=== PATIENT | male | born 1995 | race American Indian/Alaskan Native ===

== ENCOUNTER 2019-12-27 17:10 | Emergency (ER) | payer OTHER ==
[2019-12-27 17:30] VITALS: BP 134/73
--- NOTE | 2019-12-27 17:50 | Emergency Department Report ---
Blank Doc - Documentation Documentation: 24-year-old male that presents with right lower abdominal pain with radiation to right lower back area. exam: RLQ tenderness with rebound as well. This initial assessment/diagnostic orders/clinical plan/treatment(s) is/are subject to change based on patient's health status, clinical progression and re- assessment by fellow clinical providers in the ED. Further treatment and workup at subsequent clinical providers discretion. Patient/guardians urged not to elope from the ED as their condition may be serious if not clinically assessed and managed. Initial orders include: 1- Patient sent to [facility] for further evaluation and treatment 2- labs 3- UA
[2019-12-27 18:40] LABS: Basophils % (Auto) 0.4 % (0.0-1.8); Eosinophils # (Auto) 0.1 K/mm3 (0.0-0.4); Eosinophils % (Auto) 1.6 % (0.0-4.3); Hematocrit 44.3 % (35.5-45.6); Hemoglobin 15.5 gm/dl (11.8-15.2); Lymphocytes # (Auto) 1.9 K/mm3 (1.2-5.4); Lymphocytes % (Auto) 23.5 % (13.4-35.0); Mean Corpuscular HGB Conc 35 % (32-34); Mean Corpuscular Volume 88 fl (84-94); Monocytes # (Auto) 0.8 K/mm3 (0.0-0.8); Monocytes % (Auto) 9.7 % (0.0-7.3); Platelet Count 195 K/mm3 (140-440); Red Blood Count 5.04 M/mm3 (3.65-5.03); Red Cell Distribution Width 13.7 % (13.2-15.2)
[2019-12-27 19:00] LABS: Bacteria,Urine 1+ /HPF (Negative); Bilirubin,Urine NEG (Negative); Blood,Urine NEG (Negative); Color,Urine Yellow (Yellow); Mucus,Urine 3+ /HPF; WBC,Urine < 1.0 /HPF (0.0-6.0)
[2019-12-27 19:01] LABS: Alanine Aminotransferase 24 units/L (7-56); Albumin 4.5 g/dL (3.9-5); BUN/Creatinine Ratio 18; Blood Urea Nitrogen 18 mg/dL (9-20); Calcium 9.5 mg/dL (8.4-10.2); Hemolysis Index 9
[2019-12-27] MEDS ORDERED: IBUPROFEN 600 MG TAB PO ONE (20:05)
[2019-12-27] MEDS ORDERED: ACETAMINOPHEN 500 MG TAB PO ONE (20:05)
[2019-12-27] MEDS ORDERED: predniSONE 20 MG TAB PO ONE (20:06)
--- NOTE | 2019-12-27 20:33 | Emergency Department Report ---
ED Back Pain/Injury HPI - General Chief Complaint: Back Pain/Injury Stated Complaint: SIDE/BACK PAIN Time Seen by Provider: 12/27/19 17:48 Source: patient Limitations: No Limitations - History of Present Illness Initial Comments: Patient is a 24-year-old -[place] male with no past medical history except chronic low back pain who presents to the ED with complaint of acute exacerbation of his chronic low back pain that radiates to the right leg for the last 1 week. 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 Patient denies dysuria, hematuria, fall, traumatic injury, numbness and tingling or weakness of lower extremities bilaterally, abdominal pain, nausea, vomiting, fever, chills, cough, chest pain or shortness of breath, neck pain or headache, dizziness or syncope and seizures. MD Complaint: back pain, other (Right lower leg pain) -: Sudden, week(s) (1) Similar Symptoms Previously: Yes Place: work Radiation: right leg Severity: severe Severity scale (0 -10): 7 Quality: sharp, aching Consistency: constant Improves With: none Worsens With: movement, sitting upright, walking Context: while lifting, turning/twisting Associated Symptoms: denies other symptoms. denies: confusion, weakness, chest pain, difficulty walking, cough, difficulty urinating, diaphoresis, incon tinence, fever/chills, constipation, headaches, abdominal pain, nausea/vomiting, rash, seizure, shortness of breath, syncope, other - Related Data Previous Rx's Medication Instructions Recorded Last Taken Type Ibuprofen [Motrin 800 MG tab] 800 mg PO Q8HR PRN #30 tablet 09/13/15 Unknown Rx Naproxen 500 mg PO Q12H PRN #30 tablet 12/27/19 Unknown Rx methOCARBAMOL [Robaxin TAB] 500 mg PO BID PRN #30 tab 12/27/19 Unknown Rx predniSONE [Deltasone] 40 mg PO QDAY #12 tab 12/27/19 Unknown Rx traMADoL [Ultram] 50 mg PO Q6HR PRN #12 tablet 12/27/19 Unknown Rx Allergies Allergy/AdvReac Type Severity Reaction Status Date / Time No Known Allergies Allergy Unverified 09/13/15 11:53 ED Review of Systems ROS: Stated complaint: SIDE/BACK PAIN Other details as noted in HPI Constitutional: denies: chills, fever Eyes: denies: eye pain, eye discharge, vision change ENT: denies: ear pain, throat pain Respiratory: denies: cough, shortness of breath, wheezing Cardiovascular: denies: chest pain, palpitations Endocrine: no symptoms reported Gastrointestinal: denies: abdominal pain, nausea, diarrhea Genitourinary: denies: urgency, dysuria Musculoskeletal: back pain (lower back pain), arthralgia (right leg). denies: joint swelling Skin: denies: rash, lesions Neurological: denies: headache, weakness, paresthesias Psychiatric: denies: anxiety, depression Hematological/Lymphatic: denies: easy bleeding, easy bruising ED Past Medical Hx - Past Medical History Previous Medical History?: No - Surgical History Past Surgical History?: Yes Additional Surgical History: bilateral 5th digit Fx and repair - Social History Smoking Status: Never Smoker Substance Use Type: None - Medications Home Medications: Home Medications Medication Instructions Recorded Confirmed Last Taken Type Ibuprofen [Motrin 800 MG tab] 800 mg PO Q8HR PRN #30 tablet 09/13/15 Unknown Rx Naproxen 500 mg PO Q12H PRN #30 tablet 12/27/19 Unknown Rx methOCARBAMOL [Robaxin TAB] 500 mg PO BID PRN #30 tab 12/27/19 Unknown Rx predniSONE [Deltasone] 40 mg PO QDAY #12 tab 12/27/19 Unknown Rx traMADoL [Ultram] 50 mg PO Q6HR PRN #12 tablet 12/27/19 Unknown Rx ED Physical Exam - General Limitations: No Limitations General appearance: alert, in no apparent distress - Head Head exam: Present: atraumatic, normocephalic, normal inspection - Eye Eye exam: Present: normal appearance, PERRL, EOMI Pupils: Present: normal accommodation - ENT ENT exam: Present: normal exam, normal orophraynx, mucous membranes moist, TM's normal bilaterally, normal external ear exam - Neck Neck exam: Present: normal inspection, full ROM - Respiratory Respiratory exam: Present: normal lung sounds bilaterally. Absent: respiratory distress, wheezes, rales, stridor, chest wall tenderness, accessory muscle use, decreased breath sounds, prolonged expiratory - Cardiovascular Cardiovascular Exam: Present: regular rate, normal rhythm, normal heart sounds. Absent: systolic murmur, diastolic murmur, rubs, gallop - GI/Abdominal GI/Abdominal exam: Present: soft, normal bowel sounds. Absent: tenderness, guarding, rebound, hyperactive bowel sounds, hypoactive bowel sounds, organomegaly - Extremities Exam Extremities exam: Present: normal inspection, full ROM, normal capillary refill - Back Exam Back exam: Present: normal inspection, full ROM, tenderness (Palpable lumbosa cral paraspinal musculoskeletal tenderness), muscle spasm, paraspinal tenderness. Absent: CVA tenderness (L), vertebral tenderness - Neurological Exam Neurological exam: Present: alert, oriented X3, CN II-XII intact, normal gait, reflexes normal - Psychiatric Psychiatric exam: Present: normal affect, normal mood - Skin Skin exam: Present: warm, dry, intact, normal color. Absent: rash ED Course Vital Signs 12/27/19 12/27/19 17:28 17:49 Temperature 97.9 F 98.2 F Pulse Rate 81 Respiratory 16 Rate Blood Pressure 134/73 O2 Sat by Pulse 97 Oximetry ED Medical Decision Making - Lab Data Result diagrams: 12/27/19 18:00 12/27/19 18:00 - Medical Decision Making This is a 24-year-old -[place] male with no past medical history except chronic low back pain who presents to the ED with complaint of acute exacerbation of his chronic low back pain that radiates to the right leg for the last 1 week. 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 In the ED, patient is alert and oriented x3 and is not in any distress. Lab test results are reviewed and are all nonactionable. Patient was treated for pain in the ED and on reevaluation, patient's pain is well controlled medications. Patient was discharged home on pain medications and muscle relaxants and was advised to follow-up with his primary care physician in 7 to 10 days for reevaluation or return to the ED immediately if symptoms get worse. - Differential Diagnosis Muscle spasm; Sciatica; Muscle strain; Back injury Critical care attestation.: If time is entered above; I have spent that time in minutes in the direct care of this critically ill patient, excluding procedure time. ED Disposition Clinical Impression: Acute exacerbation of chronic low back pain, Spasm of muscle of lower back Chronic low back pain with right-sided sciatica Qualifiers: Back pain laterality: bilateral Qualified Code(s): M54.41 - Lumbago with sciatica, right side; G89.29 - Other chronic pain Disposition: TO HOME OR SELFCARE Is pt being admited?: No Does the pt Need Aspirin: No Condition: Stable Instructions: Muscle Cramps and Spasms, Jkmr-dt-Eyos, Chronic Back Pain, Iltt-xh-Qtum, Sciatica, Kgzr-mg-Wmvj Additional Instructions: Take medications with food, drink plenty of fluids and follow-up with your primary care physician in 7 to 10 days for reevaluation. Return to the ED immediately if symptoms get worse. Prescriptions: predniSONE [Deltasone] 40 mg PO QDAY #12 tab Naproxen 500 mg PO Q12H PRN #30 tablet PRN Reason: Pain , Severe (7-10) methOCARBAMOL [Robaxin TAB] 500 mg PO BID PRN #30 tab PRN Reason: Muscle Spasm traMADoL [Ultram] 50 mg PO Q6HR PRN #12 tablet PRN Reason: Pain Referrals: PRIMARY CARE, [Primary Care Provider] - 3-5 Days [facility] [Provider Group] - 7-10 days Forms: Work/School Release Form(ED) Time of Disposition: 20:33 Print Language: VIETNAMESE
== END 2019-12-27 20:45 | disposition home or self-care (01) ==
LOC: ED 17:10
DX: M54.41 Lumbago with sciatica, right side (principal); M62.830 Muscle spasm of back; Z79.899 Other long term (current) drug therapy; Z98.890 Other specified postprocedural states
CPT/HCPCS: 36415; 80053; 81001; 85025; 99283; J7512

== ENCOUNTER 2020-12-14 15:53 | Emergency (ER) | payer OTHER ==
[2020-12-14 16:35] VITALS: BP 108/60
--- NOTE | 2020-12-14 17:46 | XRay Report ---
Right ankle, 3 views Right foot, 3 views HISTORY: Fall, ankle pain COMPARISON: None FINDINGS: Right ankle: There is a 1 cm rounded lucency with central sclerosis within the navicular at the ava avicular joint, suspicious for osteochondral lesion. Otherwise, no acute fracture or no joint malalig nment. No focal soft tissue abnormality. Right foot: No acute fracture or malalignment. Lisfranc interval is preserved. No focal soft tissue a bnormality. IMPRESSION: 1. 1 cm suspected osteochondral lesion of the navicular. Recommend nonemergent MRI for further evalu ation. 2. Otherwise, no acute abnormality of the right ankle or foot. Signer Name: Gino Lama MD Signed: 12/14/2020 5:41 PM Workstation Name: [id number]
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
== END 2020-12-14 18:30 | disposition home or self-care (01) ==
LOC: ED 15:53
DX: S93.401A Sprain of unspecified ligament of right ankle, initial encounter (principal); X58.XXXA Exposure to other specified factors, initial encounter; Y93.89 Activity, other specified; Y92.89 Other specified places as the place of occurrence of the external cause; Y99.8 Other external cause status
CPT/HCPCS: 99283

== ENCOUNTER 2021-06-18 18:47 | Emergency (ER) | payer SELFPAY ==
[2021-06-18 20:08] VITALS: BP 107/67
[2021-06-18] MEDS ORDERED: IBUPROFEN 600 MG TAB PO ONE (20:36)
[2021-06-18] MEDS ORDERED: LIDOCAINE (1%) 10 MG/1 ML VIAL 20 ML MDV INFILTRATI ONE (20:36)
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
== END 2021-06-18 23:08 | disposition home or self-care (01) ==
LOC: ED 18:47
DX: S51.811A Laceration without foreign body of right forearm, initial encounter (principal); X58.XXXA Exposure to other specified factors, initial encounter; Y93.89 Activity, other specified; Y92.89 Other specified places as the place of occurrence of the external cause; Y99.8 Other external cause status
CPT/HCPCS: 99282